=== PATIENT | female | born 1980 | race Caucasian/White ===

== ENCOUNTER → 2024-03-09 13:06 | Outpatient (REF) | payer OTHER, SELFPAY | LOC: WDC 13:06 | PROVIDERS: ATTENDING PHYSICIAN Nurse Practitioner Adult Health; FAMILY PHYSICIAN Nurse Practitioner | DX: Z12.31 Encounter for screening mammogram for malignant neoplasm of breast (principal) | CPT/HCPCS: 77063; 77067 ==

== ENCOUNTER → 2025-03-29 13:39 | Outpatient (REF) | payer OTHER, SELFPAY | LOC: WDC 13:39 | PROVIDERS: ATTENDING PHYSICIAN Nurse Practitioner | DX: Z12.31 Encounter for screening mammogram for malignant neoplasm of breast (principal) | CPT/HCPCS: 77063; 77067 ==